=== PATIENT | male | born 1995 | race Caucasian/White ===

== ENCOUNTER 2024-08-04 17:40 | Emergency (ER) | payer MEDICAID ==
[2024-08-04] MEDS: Iopamidol 612 MG/ML 100 ML Bottle IV ONE (19:17)
[2024-08-04] MEDS: Sodium Chloride 0.9% 10 ML Syringe FLUSH ONE (19:17)
[2024-08-04] MEDS: Sodium Chloride 0.9% 100 ML IV ONE (19:17)
== END 2024-08-04 20:58 | disposition home or self-care (01) ==
LOC: JP.ED 17:40
DX: S70.01XA Contusion of right hip, initial encounter (principal); V86.55XA Driver of 3- or 4- wheeled all-terrain vehicle (ATV) injured in nontraffic accident, initial encounter
CPT/HCPCS: 74177; 99283; Q9967